=== PATIENT | male | born 1975 | race American Indian/Alaskan Native ===

== ENCOUNTER 2016-09-24 14:41 | Emergency (ER) | payer OTHER ==
[2016-09-24 14:42] VITALS: BMI 28.3
[2016-09-24 15:11] VITALS: BP 125/86; PULSE 84; RESP 18; TEMP 98.2; O2SAT 100
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
== END 2016-09-24 15:47 | disposition home or self-care (01) ==
LOC: ED 14:41
DX: M54.5 Low back pain (principal)